=== PATIENT | female | born 1945 | race Hispanic/Latino ===

== ENCOUNTER 2024-06-15 10:47 | Emergency (ER) | payer MEDICARE ==
[2024-06-15] VITALS (31 sets, daily range): BP systolic 97–188; BP diastolic 60–123
[~2024-06-15] VITALS: Ht 157.5 cm; Wt 81.8 kg
[~2024-06-15 10:47] MED LIST: LORTAB 5 OR; NO MEDS
[2024-06-15] MEDS ORDERED: MIDAZOLAM HCL 2 MG/2 ML VIAL IV ONE (12:20)
[2024-06-15] MEDS ORDERED: MORPHINE SULFATE 4 MG/ML VIAL IV ONE ×3 (12:40→15:15)
[2024-06-15] MEDS ORDERED: SODIUM CHLORIDE 0.9% 1,000 ML IV ONE (13:40)
[2024-06-15] MEDS ORDERED: ALUM & MAG HYDROX-SIMETHICONE 30 ML PO ONE (15:05)
[2024-06-15] MEDS ORDERED: LIDOCAINE HCL 2% 2ML SDV IV ONE (15:53)
[2024-06-15] MEDS ORDERED: PROPOFOL 200 MG/20 ML VIAL IV ONE (15:53)
== END 2024-06-15 16:11 | disposition home or self-care (01) ==
LOC: ED 10:47
PROC: 0RSJXZZ Reposition Right Shoulder Joint, External Approach (ICD-10-PCS; principal; 2024-06-15)
DX: M24.411 Recurrent dislocation, right shoulder (principal)